=== PATIENT | female | born 1985 | race African-American/Black ===

== ENCOUNTER → 2019-03-27 | Outpatient (CLI) | payer MEDICAID ==
--- NOTE | 2019-03-27 14:11 | RADIOLOGY REPORT (SQ) ---
EXAM DESCRIPTION: U/S OB 14+ TRNABD 1GES W/O DOP COMPLETED DATE/TIME: 03/27/2019 1:57 pm REASON FOR STUDY: Z34.82 ENCOUNTER FOR SUPRVSN OF NORMAL , SECOND TRIMESTER Z34.82 ENCOUNT ER FOR SUPRVSN OF NORMAL , SECOND TRI COMPARISON: None. TECHNIQUE: Static and Dynamic grayscale imaging performed of gravid uterus using transabdominal appr oach. Additional selected color Doppler and spectral images recorded. All stored on PACS. LIMITATIONS: None. FINDINGS: FETUSES SEEN:1 EGA: 19 weeks 1 day. Calculated using BPD,FL,HC,AC documented on images. No discrepancy with clinica l dates. BRIDGETTE: 08/20/2019 EFW: 276 grams PERCENTILE: Not applicable. Fetus less than or equal to 20 weeks gestation. LVP: 2.9 cm. Pocket diameter is approximately 1.8 cm. PLACENTA: Posterior in location. GRADE: I PRESENTATION: Cephalic. ANATOMY: HEART RATE: 157 beats per minute. FOUR CHAMBER HEART: Visualized. THREE VESSEL CORD: Yes. CORD INSERTION: Visualized. KIDNEYS AND BLADDER: Visualized. Appear normal. STOMACH: Visualized. Appears normal. SPINE: Normal as visualized. BRAIN AND LATERAL VENTRICLES: Visualized. Appear normal. OTHER: No other significant finding. MATERNAL ADNEXA: Maternal ovaries not visualized. CERVICAL LENGTH: 3.3 cm. Closed. OTHER: No other significant finding. IMPRESSION: LIVING INTRAUTERINE . ESTIMATED GESTATIONAL AGE 19 WEEKS 1 DAY. BORDERLINE OLIGOHYDRAMNIOS. LVP MEASURES 2.9 CM WITH A DIAMETER OF ONLY 1.8 CM. FOLLOW-UP IS RECOMM ENDED. Trimester of : Second trimester - 13 weeks 1 day to 27 weeks 6 days. TECHNICAL DOCUMENTATION: JOB ID: [id number] [employer]- All Rights Reserved Reading location - IP/workstation name: [email or web address]
== END ==
LOC: RAD 14:44
PROVIDERS: ATTEND Nurse Practitioner Family
DX: Z34.82 Encounter for supervision of other normal pregnancy, second trimester (principal)
CPT/HCPCS: 76805

== ENCOUNTER 2019-08-14 06:29 | Inpatient (IN) | payer MEDICAID ==
[2019-08-14] MEDS ORDERED: NORMAL SALINE 250 ML IV PRN (06:31)
[2019-08-14] MEDS ORDERED: RINGERS SOLUTION,LACTATED 1,000 ML IV ONE (06:34)
[2019-08-14] MEDS ORDERED: CEFAZOLIN 2 GM/D5W RTU 2 GM/50 ML RTUPB IV ONE (06:34)
[2019-08-14] MEDS: RINGERS SOLUTION,LACTATED 1,000 ML IV PRN ×2 (08:05→17:58)
[2019-08-14 08:11] LABS: ABSOLUTE EOSINOPHILS # (AUTO) 0.1 10^3/uL (0.0-0.6); ABSOLUTE LYMPHOCYTES (AUTO) 1.4 10^3/uL (0.5-4.7); ABSOLUTE MONOCYTES (AUTO) 0.4 10^3/uL (0.1-1.4); ABSOLUTE NEUT (AUTO) 4.2 10^3/uL (1.7-8.2); BASOPHILS % (AUTO) 0.2 % (0-2); EOSINOPHILS % (AUTO) 1.5 % (0-6); HEMATOCRIT 28.6 % (36.0-47.0); LYMPHOCYTES % (AUTO) 23.7 % (13-45); MEAN CORPUSCULAR HEMOGLOBIN 30.9 pg (27.0-33.4); MEAN CORPUSCULAR HGB CONC 34.9 g/dL (32.0-36.0); MEAN CORPUSCULAR VOLUME 89 fl (80-97); MONOCYTES % (AUTO) 6.7 % (3-13); PLATELET COUNT 137 10^3/uL (150-450); RED BLOOD COUNT 3.22 10^6/uL (3.72-5.28); RED CELL DISTRIBUTION WIDTH 12.8 % (11.5-14.0); SEGMENTED NEUTROPHILS % (AUTO) 67.9 % (42-78); TOTAL CELLS COUNTED % (AUTO) 100 %; WHITE BLOOD COUNT 6.1 10^3/uL (4.0-10.5)
[2019-08-14] MEDS ORDERED: CEFAZOLIN SODIUM 2 GM in DEXTROSE 5%-WATER 100 ML IV PRN (08:28)
[2019-08-14] MEDS ORDERED: RINGERS SOLUTION,LACTATED 1,000 ML IV PRN ×2 (08:29)
[2019-08-14 09:07] LABS: APPEARANCE,URINE SLIGHTLY-CLOUDY; BILIRUBIN,URINE NEGATIVE (NEGATIVE); COLOR,URINE YELLOW; GLUCOSE, URINE NEGATIVE (NEGATIVE); KETONES,URINE TRACE mg/dL (NEGATIVE); LEUKOCYTE ESTERASE,URINE NEGATIVE (NEGATIVE); NITRITE,URINE NEGATIVE (NEGATIVE); PROTEIN,URINE 30 mg/dL (NEGATIVE); URINE SPECIFIC GRAVITY 1.023
[2019-08-14 09:29] LABS: URINE AMPHETAMINES SCREEN NEGATIVE; URINE BARBITURATES SCREEN NEGATIVE; URINE BENZODIAZEPINES SCREEN NEGATIVE; URINE COCAINE SCREEN NEGATIVE; URINE MARIJUANA (THC) SCREEN NEGATIVE; URINE METHADONE SCREEN NEGATIVE; URINE PHENCYCLIDINE SCREEN NEGATIVE
[2019-08-14] MEDS ORDERED: EPHEDRINE SULFATE INJ 50 MG/1 ML AMPULE ONE (09:44)
[2019-08-14] MEDS ORDERED: OXYTOCIN 10 UNIT/ML VIAL ONE (09:44)
[2019-08-14] MEDS ORDERED: FENTANYL CITRATE INJ/PF 100 MCG/2 ML AMPUL ONE ×2 (09:44→13:05)
[2019-08-14] MEDS ORDERED: KETOROLAC TROMETHAMINE INJ/PF 30 MG/1 ML SDV ONE (09:44)
[2019-08-14] MEDS ORDERED: ACETAMINOPHEN 1,000 MG/100 ML RTUPB IV ONE (09:45)
[2019-08-14] MEDS ORDERED: MIDAZOLAM 2 MG/2 ML INJ ONE (09:45)
[2019-08-14] MEDS ORDERED: OXYTOCIN/NORMAL SALINE 20 UNIT/1,000 ML RTUINJ ONE (09:45)
[2019-08-14] MEDS ORDERED: ONDANSETRON HCL INJ/PF 4 MG/2 ML SDV ONE (09:45)
[2019-08-14] MEDS ORDERED: LIDOCAINE 2% INJ-PF (20 MG/ML) 10 ML AMPUL ONE ×2 (11:06→12:04)
[2019-08-14] MEDS ORDERED: SODIUM BICARBONATE 4.2% INJ (2.5 MEQ/5 ML) VIAL ONE (11:06)
[2019-08-14] MEDS ORDERED: PROMETHAZINE HCL INJ 25 MG/1 ML VIAL IV PRN ×3 (12:30→13:36)
[2019-08-14] MEDS ORDERED: DIPHENHYDRAMINE HCL 50 MG/ML VIAL IV PRN (12:30)
[2019-08-14] MEDS ORDERED: FENTANYL CITRATE INJ/PF 100 MCG/2 ML AMPUL IV PRN ×3 (12:30)
[2019-08-14] MEDS ORDERED: ONDANSETRON HCL INJ/PF 4 MG/2 ML SDV IV PRN (12:30)
[2019-08-14] MEDS ORDERED: MEPERIDINE HCL/PF INJ 25 MG/1 ML DISP.SYRIN IV PRN (12:30)
[2019-08-14] MEDS ORDERED: DIPH/PERTUSS(ACELL)/TETANUS VAC/PF 0.5 ML SYR (>=10YO) IM PRN (13:36)
[2019-08-14] MEDS ORDERED: HYDROMORPHONE HCL INJ/PF 2 MG/ML AMPULE IV PRN ×2 (13:36→23:15)
[2019-08-14] MEDS ORDERED: MEASLES,MUMPS&RUBELLA VACC/PF 0.5 ML VIAL SUBCUT PRN (13:36)
[2019-08-14] MEDS ORDERED: ACETAMINOPHEN 325 MG TABLET PO PRN (13:36)
[2019-08-14] MEDS ORDERED: OXYCODONE-ACETAMINOPHEN 5-325 MG TABLET PO PRN (13:36)
[2019-08-14] MEDS ORDERED: SIMETHICONE 80 MG TAB.CHEW PO PRN (13:36)
[2019-08-14] MEDS ORDERED: OXYTOCIN/NORMAL SALINE 20 UNIT/1,000 ML RTUINJ IV PRN (13:36)
--- NOTE | 2019-08-14 13:51 | Operative Report ---
Operative Report DATE OF SURGERY: 08/14/19 PREOPERATIVE DIAGNOSIS: Intrauterine at 39.0 wks EGA. Prior section x 3. Undesired fertility. Obesity POSTOPERATIVE DIAGNOSIS: Same as above plus scar tissue anterior abdomial wall OPERATION: Repeat delivery. Bilateral tubal ligation with Filshie clips SURGEON: ABIGAIL MURRAY ANESTHESIA: Spinal TISSUE REMOVED OR ALTERED: Placenta COMPLICATIONS: Extensive scar tissue between fascia, rectus musles and peritoneium/omentum. ESTIMATED BLOOD LOSS: 700 INTRAOPERATIVE FINDINGS: Viable male with Apgars of 7 and 9 at one and five minutes respectfully. Adhesions as above. Normal appearing uterus, bilateral fallopian tubes and ovaries. PROCEDURE: IV fluids: per anesthesia record Urinary output: 250 cc Findings: Normal-appearing uterus bilateral fallopian tubes and ovaries. Placenta with visible abruption of 1/3 surface grossly. Viable male with Apgars of 8 and 9, at 1 and 5 minutes respectively. Position: To recovery room in stable condition Description of procedure: The patient was taken to the operating room and general anesthesia was administered and found to be adequate. She was then placed on the OR table in the supine position with a slight leftward tilt. Patient was prepped and draped in usual sterile fashion. Ancef 2 gms was given IV prior to the procedure for infection prophylaxis. Timeout was taken. A Pfannenstiel skin incision was then made st level of prior incision and carried down to level the rectus fascia. The rectus fascia was then nicked in the midline with a scalpel and the fascial incision was extended laterally with use of curved Correa scissors. This was difficult due to dense adhesions between fascia, mucle, peritoneum and omentum. The rectus fascia was then grasped with 2 Kocker clamps elevated and the underlying rectus muscle was dissected off both bluntly and sharply. Scar tissue noted as above. Any bleeding controlled with cautery. The peritoneum was entered in the process of entering the fascia. The peritoneal incision was then extended by manually stretching the peritoneum. The bladder blade was positioned. The bladder was noted to be out of harm's way. A scalpel was then used in the lower uterine for the hysterotomy, slowly until amniotomy was ob tained a large amount of fluid was noted. The uterine incision was then manually stretched and extended with bandage scissors. The was noted to be in vertex postion -deep in the pelvis. Using a hand deep in pelvis, the head was elevated and brought to the hysterotomy incision. The head then delivered with difficulty as it kept drifting to the maternal right . A Kiwi vacuum was placed to assist. Two pop offs encountered. The uterine incision was extended in a T fashion approximatey 2 cm. The Kiwi was replaced and with much pressure on the fundus, the head delivered. The shoulders and the rest of the body followed immediately. The cord was cut clamped and the was handed off to the nurse awaiting. was crying prior to hand off. The placenta was manually delivered. Using a lap gauze the uterus was cleared of all clots and debris. An lashell retractor was placed just prior to delivery to facilitate delivery and closure of uterus. The uterus was then exteriorized and a bladder blade was repositioned. The uterine incision including the 2 cm T incision portion was then closed with 0 Chromic suture in a running locked fashion. A second layer of the same suture was used in a running locked imbricated fashion. Small amount of bleeding still noted just right of the midline and a box stitich was placed. The uterine incision was inspected and noted to be hemostatic. Retractor was removed. The posterior aspect of the uterus was then inspected and anatomy was seen as above. The right fallopian tube was identified and traced to the fimbriated end. A filshie clip was placed approximately 2 cm from the uterine cornu. Clip surrounded the tube in its entirety. Blanching noted and hemostasis. The left fallopian tube was identified and traced to the fimbriated end. A filshie clip was placed approximately 2 cm from the uterine cornu. Clip surrounded the tube in its entirety. Blanching noted and hemostasis. The uterus was returned to its normal anatomic position within the abdominal cavity. Warm saline irrigation was used to clear all clots and debris from the abdomen. The uterine incision was inspected once more and noted to remain hemostatic. The bladder blade was removed and the peritoneum was reapproximated along with the rectus muscles. The rectus fascia was closed with a #1 PDS in a running fashion. The subcutaneous tissue was then inspected and any bleeding was controlled with Bovie electrocautery. The subcutaneous tissue was then closed with 2-0 Plain Gut suture in a running fashion. The skin was then closed with 3- 0 Monocryl in a running subcuticular fashion. The skin incision was then clean dried and Dermabond was applied over the skin incision. All instrument sponge and needle counts were correct x3 for the procedure the patient tolerated the procedure well. She will proceed to recovery room in stable condition
[2019-08-14] MEDS: HYDROMORPHONE HCL INJ/PF 2 MG/ML AMPULE ONE ×2 (14:10→14:28)
[2019-08-14] MEDS: OXYCODONE-ACETAMINOPHEN 5-325 MG TABLET PO PRN ×2 (16:33→20:50)
[2019-08-14] MEDS: KETOROLAC TROMETHAMINE INJ/PF 30 MG/1 ML SDV IV SCH ×2 (17:50→22:34)
[2019-08-14] MEDS: DOCUSATE SODIUM 100 MG CAPSULE PO SCH (17:57)
[2019-08-15] MEDS: RINGERS SOLUTION,LACTATED 1,000 ML IV PRN (00:38)
[2019-08-15] MEDS: OXYCODONE-ACETAMINOPHEN 5-325 MG TABLET PO PRN ×4 (03:21→19:10)
--- NOTE | 2019-08-15 04:06 | PDOC DELIVERY SUMMARY ---
Delivery Summary - Maternal Hx : IV Hx # Term Pregnancies: 4 BRIDGETTE: 08/14/19 Gestational Age: 40+3 Risk Factors: Previous Ruptured Membranes: AROM Time of Rupture: 11:55 Fluids: Clear - Delivery Presentation: Vertex Heart Rate Monitoring: Done Pre-Operatively Support Person Present: No : Scheduled, Repeat Placenta: Within Normal Limits Placenta Description: normal Nuchal Cord: No Delivery of Placenta Date: 08/14/19 Delivery of Placenta Time: 12:03 Estimated Blood Loss: 600 - Medications Type of Anesthesia:: Spinal - Assess and Care Baby 1 Male Delivery of Date: 08/14/19 Delivery of Time: 12:02 at 1 minute: 7 at 5 minutes: 9 Preprinted Number On Band: [id number] Infant Skin to Skin: No To Nursery At: 12:08 Mode of Transport: Bassinet Delivery Weight: 2,725 Delivery Length: 19.75 in - Delivery Personnel Nursery RN: COMFORT BRYANT
[2019-08-15] MEDS: KETOROLAC TROMETHAMINE INJ/PF 30 MG/1 ML SDV IV SCH (05:15)
[2019-08-15 08:13] LABS: HEMATOCRIT 26.4 % (36.0-47.0); HEMOGLOBIN 9.2 g/dL (12.0-15.5); MEAN CORPUSCULAR HEMOGLOBIN 30.9 pg (27.0-33.4); MEAN CORPUSCULAR HGB CONC 34.8 g/dL (32.0-36.0); MEAN CORPUSCULAR VOLUME 89 fl (80-97); PLATELET COUNT 136 10^3/uL (150-450); RED BLOOD COUNT 2.97 10^6/uL (3.72-5.28); RED CELL DISTRIBUTION WIDTH 13.3 % (11.5-14.0); WHITE BLOOD COUNT 8.4 10^3/uL (4.0-10.5)
--- NOTE | 2019-08-15 10:50 | PDOC PROGRESS REPORT ---
Subjective-OB Progress Note for:: 08/15/19 Subjective: reports bleeding slowing, pain controlled with current meds Physical Exam (OB) Vital Signs: Temp Pulse Resp BP Pulse Ox 97.9 F 79 16 129/62 H 100 08/15/19 07:45 08/15/19 07:45 08/15/19 07:45 08/15/19 07:45 08/15/19 07:45 Intake & Output 08/14/19 08/15/19 08/16/19 06:59 06:59 06:59 Intake Total 4633 Output Total 2978 Balance 1655 Weight 131.224 kg - Dressing Removed: No Incision: Well Approximated Closure Type: Surgical Glue - Abdomen Description: Soft Hernia Present: No Fundal Description: Firm, Midline Fundal Height: u/u - u/2 - Extremities Lower extremities: Amaya's sign - neg Calf: Normal, Nontender Objective-Diagnostic Laboratory: 08/15/19 07:50 08/15/19 07:50 WBC 8.4 RBC 2.97 L Hgb 9.2 L Hct 26.4 L MCV 89 MCH 30.9 MCHC 34.8 RDW 13.3 Plt Count 136 L Assessment and Plan(PN) - Assessment and Plan (1) History of section complicating Is this a current diagnosis for this admission?: Yes (2) Vacuum-assisted delivery, delivered, current hospitalization Is this a current diagnosis for this admission?: Yes (3) Encounter for female sterilization procedure Is this a current diagnosis for this admission?: Yes (4) Delivery by section using T-shaped incision Is this a current diagnosis for this admission?: Yes - Time Spent with Patient Time with patient: Less than 15 minutes Medications reviewed and adjusted accordingly: Yes - Disposition Anticipated Discharge: Home Within: within 48 hours
[2019-08-15] MEDS: DOCUSATE SODIUM 100 MG CAPSULE PO SCH ×2 (10:56→17:14)
[2019-08-15] MEDS: PRENATAL VITAMIN W DHA CAPSULE PO SCH (10:56)
[2019-08-16] MEDS: OXYCODONE-ACETAMINOPHEN 5-325 MG TABLET PO PRN ×3 (01:14→13:10)
[2019-08-16] MEDS: DOCUSATE SODIUM 100 MG CAPSULE PO SCH (10:17)
[2019-08-16] MEDS: PRENATAL VITAMIN W DHA CAPSULE PO SCH (10:18)
--- NOTE | 2019-08-16 11:39 | PDOC DISCHARGE SUMMARY ---
Impression - Admit/DC Date/PCP Admission Date/Primary Care Provider: 08/14/19 06:29 ABIGAIL MURRAY MD Discharge Date: 08/16/19 - Discharge Diagnosis (1) History of section complicating Is this a current diagnosis for this admission?: Yes (2) Vacuum-assisted delivery, delivered, current hospitalization Is this a current diagnosis for this admission?: Yes (3) Encounter for female sterilization procedure Is this a current diagnosis for this admission?: Yes (4) Delivery by section using T-shaped incision Is this a current diagnosis for this admission?: Yes - Additional Information Resuscitation Status: Full Code Discharge Diet: Regular Discharge Activity: Balance Activity w/Rest, No Lifting Over 10 Pounds, No Lifting/Push/Pulling, Pelvic Rest, No tub bath Referrals: [facility] [Provider Group] Prescriptions: Ibuprofen [Motrin 800 mg Tablet] 800 mg PO Q8H PRN #60 tab PRN Reason: Oxycodone HCl/Acetaminophen [Percocet 5-325 mg Tablet] 1 tab PO Q4HP PRN #30 tablet PRN Reason: Home Medications: Ibuprofen [Motrin 800 mg Tablet] 800 mg PO Q8H PRN #60 tab 08/16/19 Oxycodone HCl/Acetaminophen [Percocet 5-325 mg Tablet] 1 tab PO Q4HP PRN #30 tablet 08/16/19 Vit/Dha [ Multi + Dha Capsule] 1 cap PO DAILY capsule 08/16/19 HPI Gestational Age: 40+3 Reason(s) for Admission: Ceasarean Section-Repeat Procedures: NST Intrapartum Procedure(s): : Low Cervical, Transverse - with T incision, Tubal Ligation Results Laboratory Results: WBC 8.4 10^3/uL (4.0-10.5) 08/15/19 07:50 RBC 2.97 10^6/uL (3.72-5.28) L 08/15/19 07:50 Hgb 9.2 g/dL (12.0-15.5) L 08/15/19 07:50 Hct 26.4 % (36.0-47.0) L 08/15/19 07:50 MCV 89 fl (80-97) 08/15/19 07:50 MCH 30.9 pg (27.0-33.4) 08/15/19 07:50 MCHC 34.8 g/dL (32.0-36.0) 08/15/19 07:50 RDW 13.3 % (11.5-14.0) 08/15/19 07:50 Plt Count 136 10^3/uL (150-450) L 08/15/19 07:50 Lymph % (Auto) 23.7 % (13-45) 08/14/19 07:40 Person % (Auto) 6.7 % (3-13) 08/14/19 07:40 Eos % (Auto) 1.5 % (0-6) 08/14/19 07:40 Baso % (Auto) 0.2 % (0-2) 08/14/19 07:40 Absolute Neuts (auto) 4.2 10^3/uL (1.7-8.2) 08/14/19 07:40 Absolute Lymphs (auto) 1.4 10^3/uL (0.5-4.7) 08/14/19 07:40 Absolute Monos (auto) 0.4 10^3/uL (0.1-1.4) 08/14/19 07:40 Absolute Eos (auto) 0.1 10^3/uL (0.0-0.6) 08/14/19 07:40 Absolute Basos (auto) 0.0 10^3/uL (0.0-0.2) 08/14/19 07:40 Seg Neutrophils % 67.9 % (42-78) 08/14/19 07:40 Urine Color YELLOW 08/14/19 08:50 Urine Appearance SLIGHTLY-CLOUDY 08/14/19 08:50 Urine pH 6.0 (5.0-9.0) 08/14/19 08:50 Ur Specific [place] 1.023 08/14/19 08:50 Urine Protein 30 mg/dL (NEGATIVE) H 08/14/19 08:50 Urine Glucose (UA) NEGATIVE mg/dL (NEGATIVE) 08/14/19 08:50 Urine Ketones TRACE mg/dL (NEGATIVE) H 08/14/19 08:50 Urine Blood NEGATIVE (NEGATIVE) 08/14/19 08:50 Urine Nitrite NEGATIVE (NEGATIVE) 08/14/19 08:50 Urine Bilirubin NEGATIVE (NEGATIVE) 08/14/19 08:50 Urine Urobilinogen 2.0 mg/dL (<2.0) H 08/14/19 08:50 Ur Leukocyte Esterase NEGATIVE (NEGATIVE) 08/14/19 08:50 Urine WBC (Auto) 1 /HPF 08/14/19 08:50 Urine RBC (Auto) 1 /HPF 08/14/19 08:50 Squamous Epi Cells Auto 10 /HPF 08/14/19 08:50 Urine Mucus (Auto) RARE /LPF 08/14/19 08:50 Urine Ascorbic Acid NEGATIVE (NEGATIVE) 08/14/19 08:50 Urine Opiates Screen NEGATIVE 08/14/19 08:50 Urine Methadone Screen NEGATIVE 08/14/19 08:50 Ur Barbiturates Screen NEGATIVE 08/14/19 08:50 Ur Phencyclidine Scrn NEGATIVE 08/14/19 08:50 Ur Amphetamines Screen NEGATIVE 08/14/19 08:50 U Benzodiazepines Scrn NEGATIVE 08/14/19 08:50 Urine Cocaine Screen NEGATIVE 08/14/19 08:50 U Marijuana (THC) Screen NEGATIVE 08/14/19 08:50 Blood Type B POSITIVE 08/14/19 07:40 Blood Type Confirm B POSITIVE 08/14/19 08:05 Antibody Screen NEGATIVE 08/14/19 07:40 Crossmatch See Detail 08/14/19 07:40 Plan Plan of Treatment: follow up in one week at [facility] for incision check
[2019-08-16 12:06] VITALS: BP 124/69
== END 2019-08-16 15:54 | disposition home or self-care (01) | DRG 785 ==
LOC: 2S 06:29
PROVIDERS: ADMIT Obstetrics & Gynecology; ATTEND Obstetrics & Gynecology
PROC: 0UL70CZ Occlusion of Bilateral Fallopian Tubes with Extraluminal Device, Open Approach (ICD-10-PCS; 2019-08-14)
PROC: 10D00Z1 Extraction of Products of Conception, Low, Open Approach (ICD-10-PCS; principal; 2019-08-14 09:30)
PROC: 3E0234Z Introduction of Serum, Toxoid and Vaccine into Muscle, Percutaneous Approach (ICD-10-PCS; 2019-08-16)
DX: O34.211 Maternal care for low transverse scar from previous cesarean delivery (principal); O99.214 Obesity complicating childbirth; O99.334 Smoking (tobacco) complicating childbirth; E66.9 Obesity, unspecified; F17.210 Nicotine dependence, cigarettes, uncomplicated; Z30.2 Encounter for sterilization; Z37.0 Single live birth; Z3A.40 40 weeks gestation of pregnancy; Z86.19 Personal history of other infectious and parasitic diseases; Z23 Encounter for immunization
CPT/HCPCS: 1961; 36415; 59025; 80307; 81001; 85025; 85027; 86850; 86900; 86901; 86920; 90715; 94799; J0131; J0690; J1170; J1885; J2250; J2405; J2590; J3010; J3490; J7060; J7120